=== PATIENT | female | born 1980 | race Caucasian/White ===

== ENCOUNTER 2019-06-27 10:29 | Outpatient (REF) | payer BC, SELFPAY ==
--- NOTE | 2019-06-27 09:15 | PAPFT_PTH ---
PATIENT: Nisha Draper LOC: [facility] U#:[id number] AGE/SX: 38/F ROOM: RE06/27/[address]: Nini Herman NP : 1980 BED: DIS: 06/27/2019 SPEC #: [id number] RECD: 06/27/19 12:56 STATUS: MELODIE REShirley #: [id number] JENS: 06/27/19 09:[address]: Nini Herman NP DEPT: [facility] Cytology RECD BY: Savana Kirkland ENTERED: 06/27/19 12:57 SP TYPE: PAPFT OTHR DR: Kaushik Puga MD Tissues: 1 - CX/ENDOCX FOR PAP SMEARS Procedures: PAP THIN PREP/UVM Screening HPV DNA PROBE Comments: [id number] (CHLAMYDIA/GC)
[2019-06-28 15:01] LABS: Chlamydia Result Negative (Negative); GC Result Negative (Negative)
== END 2019-06-27 10:49 ==
LOC: LBN 10:29
PROVIDERS: PCP Family Medicine; Visit Provider Nurse Practitioner Women's Health
DX: Z11.3 Encounter for screening for infections with a predominantly sexual mode of transmission (principal); Z12.4 Encounter for screening for malignant neoplasm of cervix; Z11.51 Encounter for screening for human papillomavirus (HPV)
CPT/HCPCS: 87491; 87591; 88142; 87624

== ENCOUNTER 2020-07-24 02:06 | Outpatient (CLI) | payer BC, SELFPAY ==
--- NOTE | 2020-07-24 08:49 | DI.MAMMO_ITS ---
EXAM: MAMMO SCREENING CLINICAL HISTORY: screening,Z12.39 TECHNIQUE: Mammograms were interpreted according to the usual protocol including computer analysis w [employer] CAD system, tomosynthesis and C-view imaging. COMPARISON: FINDINGS: The breasts are of moderate density with fairly symmetrical distribution of fibroglandular tissue. N o dominant mass or clumped microcalcification is identified in either breast. Today's examination is a baseline examination. IMPRESSION: No specific evidence of malignancy at this time. Routine screening examinations are suggested at yea rly intervals in this age group according to the ACR guidelines. BI-RADS Category 1 - Negative Category B - Scattered areas of fibroglandular densityBreast Density - Category B - Scattered areas of fibroglandular density
== END 2020-07-24 02:26 ==
DX: Z12.31 Encounter for screening mammogram for malignant neoplasm of breast (principal)
CPT/HCPCS: 77063; 77067

== ENCOUNTER 2021-08-12 03:12 | Outpatient (CLI) | payer BC, SELFPAY ==
--- NOTE | 2021-08-12 08:15 | DI.MAMMO_ITS ---
Exam(s) MAMMO SCREENING EXAM: MAMMO SCREENING CLINICAL HISTORY: screening,Z12.39. TECHNIQUE: Bilateral full field digital CC and MLO mammographic images were obtained with 3D tomosyn thesis and utilizing computer aided detection (CAD). COMPARISON: Compared to prior baseline mammogram of July 2020 FINDINGS: There are no CAD designations There are no new significant radiograph findings in the right breast. Towards the medial aspect of the left breast located approximately 6 cm in from the nipple there is a n asymmetric density-possible nodule measuring 10 by millimeters. More prominent on the prior study. No malignant-appearing microcalcification groups is region or elsewhere in either breast. There is no significant architectural distortion nor skin thickening-retraction. IMPRESSION: 1. No radiographic evidence of malignancy in the right breast Asymmetric density-possible nodule in the left breast located medial of center. Spot compression vie w and ultrasound recommended BI-RADS Category 0 - Assessment Incomplete: Need additional imaging evaluation Density: Breast density Category C or D implies that the patient has dense breast tissue. Dense breast tissue can make it harder to find cancer on a mammogram. Dense breast tissue is also associated with an incr eased risk of breast cancer. This information about the result of the mammogram report was provided to the patient to raise their awareness. Use this report when you speak with the patient about their risks for breast cancer, which includes their family history. At that time, you may recommend additional screening tests (Ultrasoun d or MRI) as these tests may add significant information. A negative radiographic report should not delay biopsy if a dominant or clinically suspicious mass is present. Up to ten percent of cancers are not identified on mammography. A negative report may reinforce clinical impression. Adenosis and dense breasts may obscure an underlying neoplasm. False positive reports average 6 to 10%. Patient will receive a letter notifying them of these results.
== END 2021-08-12 03:32 ==
DX: Z12.31 Encounter for screening mammogram for malignant neoplasm of breast (principal); R92.8 Other abnormal and inconclusive findings on diagnostic imaging of breast
CPT/HCPCS: 77063; 77067

== ENCOUNTER 2021-09-09 03:31 | Outpatient (CLI) | payer BC, SELFPAY ==
[2021-09-09 08:04] LABS: Albumin 4.3 g/dL (3.4-5.0); Alkaline Phosphatase 64 U/L (46-116); BUN 11 mg/dL (7-18); Bilirubin, Total 0.6 mg/dL (0.2-1.0); CREATININE 1.1 mg/dL (0.55-1.02); Calcium 9.2 mg/dL (8.5-10.1); Calculated LDL 104 mg/dL (<100); Chloride 104 mmol/L (98-107); Cholesterol 166 mg/dL (<200); Estimated GFR 54.74 (mL/min/1.73m2); Glucose 114 mg/dL (74-106); HDL Cholesterol 53 mg/dL (40-60); Potassium 3.8 mmol/L (3.5-5.1); Sodium 141 mmol/L (136-145); Total Protein 7.5 g/dL (6.4-8.2); Triglyceride 49 mg/dL (<150)
[2021-09-09 08:05] LABS: ALT 31 U/L (14-59); AST 12 U/L (15-37)
== END 2021-09-09 03:32 | disposition home or self-care (01) ==
LOC: LBO 03:32
DX: Z00.00 Encounter for general adult medical examination without abnormal findings (principal); Z13.220 Encounter for screening for lipoid disorders
CPT/HCPCS: 36415; 80053; 80061

== ENCOUNTER 2021-09-13 02:05 | Outpatient (CLI) | payer BC, SELFPAY ==
--- NOTE | 2021-09-13 | DI.US_ITS ---
Exam(s) MG MAMMO SCREEN CALL BACK UNI US BREAST LT LIMITED EXAM: MG MAMMO SCREEN CALL BACK UNI and U/S breast LT limited CLINICAL HISTORY: ASYMMETRIC DENSITY POSSIBLE NODULE LT BREAST. TECHNIQUE: Craniocaudal and mediolateral oblique Full Field Digital Mammography views of the left br east with Computer Aided Diagnosis followed by Tomosynthesis and left breast ultrasound. COMPARISON: US US BREAST LT LIMITED from 09/13/2021 FINDINGS: Mammography/Tomosynthesis: Masses/Architectural Distortion: None seen. Microcalcifictions: No suspicious pleomorphic-type are seen. Skin Thickening/Nipple Retraction: None. Limited left breast US: Echotexture: Normal appearance of the glandular tissue. Shadowing: No suspicious foci. Cyst: 3 x 3 x 4 mm simple cyst at the 9 o'clock position of the left breast 3 cm from the nipple. Solid lesions: There is what appears to be a 1.2 cm lymph node 7 cm from the nipple at 8 o'clock. Ductal dilation: None. IMPRESSION: 1. No evidence of malignancy is noted. 2. A six-month follow-up left mammogram is recommended for re-evaluation. 3. The findings were discussed with the patient on the date of the examination. BI-RADS Category 3 - 6 month - Probably Benign Finding: Recommend follow-up imaging in 6 months Breast Density - Category B - Scattered areas of fibroglandular density Breast density Category C or D implies that the patient has dense breast tissue. Dense breast tissue can make it harder to find cancer on a mammogram. Dense breast tissue is also associated with an incr eased risk of breast cancer. This information about the result of the mammogram report was provided to the patient to raise their awareness. Use this report when you speak with the patient about their risks for breast cancer, which includes their family history. At that time, you may recommend additional screening tests (Ultrasoun d or MRI) as these tests may add significant information. A negative radiographic report should not delay biopsy if a dominant or clinically suspicious mass is present. Up to ten percent of cancers are not identified on mammography. A negative report may reinforce clinical impression. Adenosis and dense breasts may obscure an underlying neoplasm. False positive reports average 6 to 10%. Patient will receive a letter notifying them of these results.
== END 2021-09-13 02:25 ==
DX: Z12.31 Encounter for screening mammogram for malignant neoplasm of breast (principal); R92.8 Other abnormal and inconclusive findings on diagnostic imaging of breast; N60.02 Solitary cyst of left breast; N64.59 Other signs and symptoms in breast
CPT/HCPCS: 76642; 77063; 77067

== ENCOUNTER → 2022-03-21 00:01 | Outpatient (CLI) | payer BC, SELFPAY ==
--- NOTE | 2022-03-21 | DI.MAMMO_ITS ---
Exam(s) MG MAMMO DIAGNOSTIC UNI US BREAST LT LIMITED EXAM: MG MAMMO DIAGNOSTIC UNI and U/S breast LT limited CLINICAL HISTORY: 6 MO F/U, F/U ABNL MAMMO, R92.8,Z09 ENCOUNTER FOR F/U. TECHNIQUE: Craniocaudal and mediolateral oblique Full Field Digital Mammography views of the left br east with Computer Aided Diagnosis followed by Tomosynthesis and left breast ultrasound. COMPARISON: Comparison with prior examinations. FINDINGS: Mammography/Tomosynthesis: Masses/Architectural Distortion: There is a new well-circumscribed nodule in the outer left breast. It measures 5 mm. No areas of architectural distortion are seen. The other nodular areas in the ioana ast are stable. Microcalcifictions: No suspicious pleomorphic-type are seen. Skin Thickening/Nipple Retraction: None. Limited left breast US: Echotexture: Normal appearance of the glandular tissue. Shadowing: No suspicious foci. Cyst: None. Solid lesions: None seen. Ductal dilation: None. IMPRESSION: 1. No evidence of malignancy is noted. 2. A six-month follow-up left mammogram is recommended for re-evaluation. 3. The findings were discussed with the patient on the date of the examination. BI-RADS Category 3 - 6 month - Probably Benign Finding: Recommend follow-up imaging in 6 months Breast Density - Category B - Scattered areas of fibroglandular density Breast density Category C or D implies that the patient has dense breast tissue. Dense breast tissue can make it harder to find cancer on a mammogram. Dense breast tissue is also associated with an incr eased risk of breast cancer. This information about the result of the mammogram report was provided to the patient to raise their awareness. Use this report when you speak with the patient about their risks for breast cancer, which includes their family history. At that time, you may recommend additional screening tests (Ultrasoun d or MRI) as these tests may add significant information. A negative radiographic report should not delay biopsy if a dominant or clinically suspicious mass is present. Up to ten percent of cancers are not identified on mammography. A negative report may reinforce clinical impression. Adenosis and dense breasts may obscure an underlying neoplasm. False positive reports average 6 to 10%. Patient will receive a letter notifying them of these results.
== END ==
DX: R92.8 Other abnormal and inconclusive findings on diagnostic imaging of breast (principal); N63.22 Unspecified lump in the left breast, upper inner quadrant
CPT/HCPCS: 76642; 77061; 77065; G0279

== ENCOUNTER 2022-10-07 02:07 | Outpatient (CLI) | payer BC, SELFPAY ==
[2022-10-07 09:02] LABS: Anion Gap 10.8 mmol/L (3-11); BUN 15 mg/dL (7-18); CO2 26.2 mmol/L (21.0-32.0); Calcium 9.3 mg/dL (8.5-10.1); Chloride 104 mmol/L (98-107); Estimated GFR 72.13 (mL/min/1.73m2); Potassium 3.9 mmol/L (3.5-5.1); Sodium 141 mmol/L (136-145)
[2022-10-07 09:15] LABS: Glucose 102 mg/dL (74-106)
[2022-10-08 10:26] LABS: HIV-1/2 Ag & Ab Screen Negative (Negative)
[2022-10-08 12:11] LABS: Hepatitis C Ab w Rflx HCV PCR Negative (Negative)
== END 2022-10-07 02:08 | disposition home or self-care (01) ==
LOC: LBO 02:07
PROVIDERS: PCP Nurse Practitioner Family; Visit Provider Nurse Practitioner Family
DX: R73.9 Hyperglycemia, unspecified (principal); Z13.1 Encounter for screening for diabetes mellitus; Z11.59 Encounter for screening for other viral diseases; Z11.4 Encounter for screening for human immunodeficiency virus [HIV]
CPT/HCPCS: 36415; 80048; 86803; 87389; 83036

== ENCOUNTER 2022-10-08 01:28 | Outpatient (CLI) | payer BC, SELFPAY ==
--- NOTE | 2022-10-08 09:59 | DI.MAMMO_ITS ---
Exam(s) MAMMO DIAGNOSTIC BI EXAM: MAMMO DIAGNOSTIC BI CLINICAL HISTORY: F/U ABNL MAMMO, R92.8,Z09 TECHNIQUE: Bilateral full field digital CC and MLO mammographic images were obtained with 3D tomosyn thesis and utilizing computer aided detection (CAD). COMPARISON: Available for comparison. FINDINGS: Masses/Architectural Distortion: The nodule in the outer left breast appears stable. No new suspicio us nodules are seen. No evidence of architectural distortion is present. Microcalcifications: No suspicious pleomorphic-type are seen. Skin Thickening/Nipple Retraction: None. IMPRESSION: 1. No significant interval change with no specific features of malignancy noted. 2. The right breast is unremarkable and unchanged. 3. A six-month follow-up left mammogram is requested for monitoring of the left breast nodule. 4. Findings were discussed with the patient on the date of the examination. BI-RADS Category 3 - 6 month - Probably Benign Finding: Recommend follow-up imaging in 6 months Breast Density - Category B - Scattered areas of fibroglandular density Breast density category C or D implies that the patient has dense breast tissue. Dense breast tissue is very common and is not abnormal but dense breast tissue can make it harder to find cancer on a ma mmogram. Also, dense breast tissue may increase their breast cancer risk. This information about the result of the mammogram report was provided to the patient to raise their awareness. Use this report when you speak with the patient about their risks for breast cancer, which includes their family hist ory. At that time, you may recommend for more screening tests (Ultrasound or MRI) as they might be us eful based on their risk. A negative radiographic report should not delay biopsy if a dominant or clinically suspicious mass is present. Up to ten percent of cancers are not identified on mammography. A negative report may reinforce clinical impression. Adenosis and dense breasts may obscure an underlying neoplasm. False positive reports average 6 to 10%. Patient will receive a letter notifying them of these results.
== END 2022-10-08 01:48 ==
LOC: DI 01:28
PROVIDERS: PCP Nurse Practitioner Family
DX: R92.8 Other abnormal and inconclusive findings on diagnostic imaging of breast; N64.59 Other signs and symptoms in breast
CPT/HCPCS: 77062; 77066; G0279

== ENCOUNTER → 2023-04-21 02:08 | Outpatient (CLI) | payer BC, SELFPAY ==
--- NOTE | 2023-04-21 07:30 | DI.MAMMO_ITS ---
Exam(s) US BREAST LT COMPLETE MG MAMMO DIAGNOSTIC UNI EXAM: MAMMO DIAGNOSTIC UNI CLINICAL HISTORY: 6 month f/u,R92.8,Z09. TECHNIQUE: Unilateral CC and MLO mammographic views as well as 3 spot compression views images were obtained with 3D tomosynthesis technique and utilizing computer aided detection (CAD). Complete left breast ultrasound performed including all 4 quadrants as well as the axillary regions. COMPARISON: Prior mammograms were reviewed, the most recent being September 2022. Prior ultrasound a lso reviewed.. FINDINGS: DIAGNOSTIC LEFT BREAST MAMMOGRAM: There is a described nodular lateral of center densities have appearance of benign intramammary lymph nodes on additional spot compression views. Benign-appearing density medial of center is unchanged from prior studies. COMPLETE LEFT BREAST ULTRASOUND: No evidence of solid or significant cystic lesions in all 4 quadrant s. At 7 o'clock position there is a finding which upon real-time imaging (also acquired cine loops t hrough this region) is less concerning for significant finding. Scanning of the left axilla is negative for adenopathy. IMPRESSION: 1. Benign-appearing left breast findings on mammogram and ultrasound Appropriate follow-up is to keep this patient on a yearly mammogram schedule, this implying that her next bilateral mammogram would be in 6 months, with earlier imaging if a self detected breast change is noted. The patient was informed of the findings and follow-up recommendations prior to leaving the [facility] today. BI-RADS Category 2 - Benign Findings Breast Density - Category B - Scattered areas of fibroglandular density Breast density Category C or D implies that the patient has dense breast tissue. Dense breast tissue can make it harder to find cancer on a mammogram. Dense breast tissue is also associated with an incr eased risk of breast cancer. This information about the result of the mammogram report was provided to the patient to raise their awareness. Use this report when you speak with the patient about their risks for breast cancer, which includes their family history. At that time, you may recommend additional screening tests (Ultrasoun d or MRI) as these tests may add significant information. A negative radiographic report should not delay biopsy if a dominant or clinically suspicious mass is present. Up to ten percent of cancers are not identified on mammography. A negative report may reinforce clinical impression. Adenosis and dense breasts may obscure an underlying neoplasm. False positive reports average 6 to 10%. Patient will receive a letter notifying them of these results.
== END ==
PROVIDERS: PCP Nurse Practitioner Family; Visit Provider Nurse Practitioner Family
DX: R92.8 Other abnormal and inconclusive findings on diagnostic imaging of breast (principal); Z09 Encounter for follow-up examination after completed treatment for conditions other than malignant neoplasm
CPT/HCPCS: 76642; 77061; 77065; G0279

== ENCOUNTER → 2023-11-03 03:55 | Outpatient (CLI) | payer BC, SELFPAY ==
--- NOTE | 2023-11-03 13:44 | DI.MAMMO_ITS ---
Exam(s) MAMMO DIAGNOSTIC BI EXAM: MAMMO DIAGNOSTIC BI CLINICAL HISTORY: 6 month follow up Z09 R92.8 ABNL FINDINGS ON BREAT IMAGING. TECHNIQUE: Unilateral spot mammographic images were obtained with 3D tomosynthesis technique and uti lizing computer aided detection (CAD). COMPARISON: Prior mammograms were reviewed, as was prior ultrasound. FINDINGS: There has been no significant change in the appearance and distribution of the fibroglandular tissue. There are no new spiculated masses nor malignant-appearing microcalcification groups in either breast . A previously described nodular density in left breast is actually less evident on the present stud y. There is no new architectural distortion or skin thickening-traction. IMPRESSION: No radiographic evidence of malignancy The patient was informed of the findings and follow-up recommendations prior to leaving the [facility] today. BI-RADS Category 2 - Benign Findings Breast Density - Category B - Scattered areas of fibroglandular density Breast density Category C or D implies that the patient has dense breast tissue. Dense breast tissue can make it harder to find cancer on a mammogram. Dense breast tissue is also associated with an incr eased risk of breast cancer. This information about the result of the mammogram report was provided to the patient to raise their awareness. Use this report when you speak with the patient about their risks for breast cancer, which includes their family history. At that time, you may recommend additional screening tests (Ultrasoun d or MRI) as these tests may add significant information. A negative radiographic report should not delay biopsy if a dominant or clinically suspicious mass is present. Up to ten percent of cancers are not identified on mammography. A negative report may reinforce clinical impression. Adenosis and dense breasts may obscure an underlying neoplasm. False positive reports average 6 to 10%. Patient will receive a letter notifying them of these results.
== END ==
PROVIDERS: PCP Nurse Practitioner Family; Visit Provider Nurse Practitioner Family
DX: R92.8 Other abnormal and inconclusive findings on diagnostic imaging of breast (principal); R92.323 Mammographic fibroglandular density, bilateral breasts
CPT/HCPCS: 77062; 77066; G0279

== ENCOUNTER 2024-05-10 20:59 | Outpatient (REF) | payer BC, SELFPAY ==
[2024-05-10 21:23] LABS: Bilirubin Negative (Negative); Blood Trace-intact (Negative); Clarity Clear (Clear); Glucose Negative (Negative); Ketones Negative (Negative); Leukocyte Esterase Negative (Negative); Nitrite Negative (Negative)
[2024-05-10 21:55] LABS: Bacteria Rare HPF (Negative); C & S Indicated? No; Crystals Negative HPF (Negative); Epithelial Cells Moderate HPF (Negative); Mucus Negative (Negative); Other Cells Rare Renal (Negative)
== END 2024-05-10 21:00 | disposition home or self-care (01) ==
LOC: LBN 20:59
PROVIDERS: PCP Nurse Practitioner Family; Visit Provider Nurse Practitioner Family
DX: R39.9 Unspecified symptoms and signs involving the genitourinary system (principal)
CPT/HCPCS: 81003; 81015

== ENCOUNTER 2024-09-27 15:35 | Outpatient (REF) | payer BC, SELFPAY ==
--- NOTE | 2024-09-27 15:40 | PAPFT_PTH ---
PATIENT: Nisha Draper LOC: [facility] U#:[id number] AGE/SX: 43/F ROOM: RE09/27/[address]: Nini Herman NP : 1980 BED: DIS: 09/27/2024 SPEC #: [id number] RECD: 09/27/24 18:00 STATUS: MELODIE REShirley #: [id number] JENS: 09/27/24 15:[address]: Nini Herman NP DEPT: [facility] Cytology RECD BY: Savana Kirkland ENTERED: 09/27/24 18:00 SP TYPE: PAPFT OTHR DR: Sekou Rhodes, CRISTIAN Tissues: 1 - CX/ENDOCX FOR PAP SMEARS Procedures: PAP THIN PREP/UVM Screening HPV DNA PROBE Comments: [id number] (HPV 16 & 18/45) (CHLAMYDIA/GC)
[2024-09-28 12:24] LABS: Chlamydia Result Negative (Negative); GC Result Negative (Negative)
== END 2024-09-27 15:36 | disposition home or self-care (01) ==
LOC: LBN 15:35
PROVIDERS: PCP Nurse Practitioner Family; Visit Provider Nurse Practitioner Women's Health
DX: Z11.51 Encounter for screening for human papillomavirus (HPV) (principal); Z01.419 Encounter for gynecological examination (general) (routine) without abnormal findings; Z11.3 Encounter for screening for infections with a predominantly sexual mode of transmission
CPT/HCPCS: 87491; 87591; 88142; 87624

== ENCOUNTER 2024-09-27 16:08 | Outpatient (CLI) | payer BC, SELFPAY ==
[2024-09-28 19:41] LABS: HIV-1/2 Ag & Ab Screen Negative (Negative)
[2024-09-28 19:51] LABS: Hepatitis C Ab w Rflx HCV PCR Negative (Negative)
[2024-09-30 14:18] LABS: Syphilis IgG w/Reflex Nonreactive (Nonreactive)
== END 2024-09-27 16:09 | disposition home or self-care (01) ==
LOC: LBO 16:09
PROVIDERS: PCP Nurse Practitioner Family; Visit Provider Nurse Practitioner Women's Health
DX: Z11.3 Encounter for screening for infections with a predominantly sexual mode of transmission (principal); Z01.419 Encounter for gynecological examination (general) (routine) without abnormal findings; Z30.431 Encounter for routine checking of intrauterine contraceptive device; Z12.4 Encounter for screening for malignant neoplasm of cervix
CPT/HCPCS: 36415; 86803; 87389; 86780

== ENCOUNTER 2024-11-04 00:11 | Outpatient (CLI) | payer BC, SELFPAY ==
--- NOTE | 2024-11-04 07:15 | DI.MAMMO_ITS ---
Exam(s) MAMMO SCREENING EXAM: MAMMO SCREENING CLINICAL HISTORY: screening,Z12.39 TECHNIQUE: Mammograms were interpreted according to the usual protocol including computer analysis w [employer] CAD system, tomosynthesis and C-view imaging. COMPARISON: 2019 through 2023 FINDINGS: The breasts are composed of scattered fibroglandular densities, Breast Density category B. No suspicious masses or suspicious microcalcifications are seen. No skin thickening or abnormal axillary lymph nodes are seen. There has been no significant change from prior exams. IMPRESSION: BI-RADS Category 1, Negative mammogram Yearly screening mammography is recommended. Breast Density - Category B, scattered fibroglandular densities. A negative radiographic report should not delay biopsy if a dominant or clinically suspicious mass is present. Up to ten percent of cancers are not identified on mammography. A negative report may reinforce clinical impression. Adenosis and dense breasts may obscure an underlying neoplasm. False positive reports average 6 to 10%. Patient will receive a letter notifying them of these results.
== END 2024-11-04 00:31 ==
LOC: DI 00:11
PROVIDERS: PCP Nurse Practitioner Family; Visit Provider Nurse Practitioner Family
DX: Z12.31 Encounter for screening mammogram for malignant neoplasm of breast (principal); R92.323 Mammographic fibroglandular density, bilateral breasts
CPT/HCPCS: 77063; 77067